=== PATIENT | male | born 1940 | race Caucasian/White ===

== ENCOUNTER 2017-05-05 08:00 | Outpatient (CLI) | payer MEDICARE, OTHER ==
[2017-05-05 19:10] LABS: CALCIUM 9.3 mg/dL (8.5-10.3); CREATININE 1.2 mg/dL (0.6-1.2)
== END 2017-05-05 08:01 | disposition home or self-care (01) ==
LOC: LAB.N 08:00
PROVIDERS: ATTEND Nurse Practitioner Family
DX: I48.91 Unspecified atrial fibrillation (principal)
CPT/HCPCS: 36415; 80048

== ENCOUNTER 2017-06-02 11:14 | Outpatient (CLI) | payer MEDICARE, OTHER ==
--- NOTE | 2017-06-02 13:41 | XRAY Report ---
TWO VIEW CHEST: 06/02/2017 CLINICAL INDICATION: Hemoptysis. COMPARISON: 05/26/2009. FINDINGS: Frontal and lateral views of the chest demonstrate a normal cardiac silhouette. The lungs are clear. No effusion or pneumothorax is present. IMPRESSION: NORMAL CHEST. JOB #: [id number] EXT JOB #:[id number]
== END 2017-06-02 11:15 | disposition home or self-care (01) ==
LOC: DI.N 11:14
PROVIDERS: ATTEND Internal Medicine
DX: R04.2 Hemoptysis (principal)
CPT/HCPCS: 71020

== ENCOUNTER 2017-09-10 14:40 | Outpatient (CLI) | payer MEDICARE, OTHER ==
--- NOTE | 2017-09-10 18:53 | XRAY Report ---
THREE VIEW LEFT SHOULDER: 09/10/2017 CLINICAL INDICATION: Pain. AP, oblique, scapular Y-views of the left shoulder demonstrate degenerative changes of the left gleno humeral and acromioclavicular joints. There is no evidence of acute fracture or dislocation. No rad iopaque foreign body is seen in the soft tissues. IMPRESSION: OSTEOARTHRITIS. NO EVIDENCE OF ACUTE FRACTURE. JOB #: [id number] EXT JOB #:[id number]
== END 2017-09-10 14:41 | disposition home or self-care (01) ==
LOC: DI 14:40
PROVIDERS: ATTEND Physician Assistant
DX: M19.012 Primary osteoarthritis, left shoulder (principal)

== ENCOUNTER 2017-12-23 12:01 | Outpatient (CLI) | payer MEDICARE, OTHER | END 2017-12-23 12:02 | disposition home or self-care (01) | LOC: LAB 12:01 | PROVIDERS: ATTEND Family Medicine | DX: M79.661 Pain in right lower leg (principal) | CPT/HCPCS: 36415; 85379 ==

== ENCOUNTER 2018-01-17 16:40 | Outpatient (CLI) | payer MEDICARE, OTHER ==
--- NOTE | 2018-01-19 10:12 | Ultrasound Report ---
BILATERAL SPEEDY'S: 01/17/2018 CLINICAL INDICATION: Right-sided pain. TECHNIQUE: Real-time sonographic vascular imaging was performed by the external grinder through the extremities utilizing both color-flow and Doppler flow analysis. Multiple business development representative static images were saved for review. RIGHT SIDE SITE PSV [employer] PASTEUR[employer]ER 74 triphasic PER -- DPA 54 triphasic LEFT SIDE SITE PSV [employer] PASTEUR[employer]ER 64 biphasic PER -- DPA 51 biphasic SYSTOLIC PRESSURES RIGHT LEFT BRACHIAL ARTERY 157/99 179/100 POSTERIOR TIBIAL ARTERY 203/90 187/90 ANTERIOR TIBIAL ARTERY -- -- PERONEAL ARTERY -- -- ANKLE/ARM INDEX 1.29 1.04 FINDINGS: ABIs are normal, with the right measuring 1.29 and the left measuring 1.04. IMPRESSION: NORMAL ABIs. TD: 01/18/2018 10:08 MTDD
== END 2018-01-17 16:41 | disposition home or self-care (01) ==
LOC: DI 16:40
PROVIDERS: ATTEND Family Medicine
DX: M79.604 Pain in right leg (principal); M79.661 Pain in right lower leg
CPT/HCPCS: 93922

== ENCOUNTER 2018-02-22 08:00 | Outpatient (CLI) | payer MEDICARE, OTHER ==
[2018-02-22 13:08] LABS: ALBUMIN 4.7 g/dL (3.2-5.5); ALBUMIN/GLOBULIN RATIO 1.6 (1.0-2.2); BILIRUBIN,TOTAL 1.1 mg/dL (0.2-1.0); CALCIUM 9.4 mg/dL (8.5-10.3); TOTAL PROTEIN 7.7 g/dL (6.7-8.2)
== END 2018-02-22 08:01 | disposition home or self-care (01) ==
LOC: LAB.N 08:00
PROVIDERS: ATTEND Internal Medicine Cardiovascular Disease
DX: I48.91 Unspecified atrial fibrillation (principal)
CPT/HCPCS: 36415; 80053

== ENCOUNTER 2018-06-14 13:01 | Outpatient (CLI) | payer MEDICARE, OTHER ==
--- NOTE | 2018-06-14 15:52 | XRAY Report ---
Reason: HIP JOINT PAIN,LEFT Procedure Date: 06/14/2018 Accession Number: [id number] / [id number] Procedure: XR - Hip w/Pelvis 2-3V LT CPT Code: FULL RESULT: EXAM: LEFT HIP AND PELVIS RADIOGRAPHY EXAM DATE: 06/14/2018 01:41 PM. HISTORY: HIP JOINT PAIN,LEFT. COMPARISONS: 12/23/2017. TECHNIQUE: 1 view of the pelvis and 1 view of the left hip. FINDINGS: Bones: No fracture or bone lesion. Joints: The bilateral hip, pubis symphysis, and sacroiliac joints are anatomically aligned. Degenerative spurring of the superior acetabulum bilaterally. Minimal if any narrowing. Soft Tissues: No soft tissue swelling. Other: Stable compared with 12/23/2017 IMPRESSION: Minimal degenerative change of the hips without superimposed acute findings. RADIA
== END 2018-06-14 13:02 | disposition home or self-care (01) ==
LOC: DI 13:01
PROVIDERS: ATTEND Family Medicine
DX: M16.0 Bilateral primary osteoarthritis of hip (principal)

== ENCOUNTER 2018-07-25 09:45 | Outpatient (CLI) | payer MEDICARE, OTHER ==
--- NOTE | 2018-07-25 11:06 | MRI Report ---
Reason: LUMBAR RADICULOPATHY Procedure Date: 07/25/2018 Accession Number: [id number] / [id number] Procedure: MRI - Lumbar Spine W/O CPT Code: FULL RESULT: EXAM: MRI LUMBAR SPINE WITHOUT CONTRAST EXAM DATE: 07/25/2018 10:41 AM. CLINICAL HISTORY: LUMBAR RADICULOPATHY. COMPARISON: Lumbar radiograph 12/23/2017. TECHNIQUE: Multiplanar, multisequence T1-weighted and fluid-sensitive sequences of the lumbar spine from T12 to S1 without contrast. Other: None. FINDINGS: Spinal Canal: The conus terminates at T12-L1. The conus medullaris and cauda equina are unremarkable. Alignment: There is 5 degrees of dextroconvex scoliotic curvature. There is straightening of the normal lumbar lordosis. There is 2 mm of grade 1 retrolisthesis of L4 on L5 and L5 on S1. Bone Marrow: Five [id number] lumbar vertebral bodies are assumed. No gross fractures or bone lesions. No bone marrow replacement. Disk Levels/Facets: Mild end plate degenerative change with mild loss of disk height and disk desiccation seen throughout the lumbar spine. T12-L1: Unremarkable. L1-L2: Bilateral arthritic facet disease and prominent epidural fat. No spinal canal stenosis. No neuroforaminal narrowing. L2-L3: Small posterior disk bulge, bilateral arthritic facet disease, ligamentum flavum thickening, and prominent epidural fat. Mild spinal canal stenosis and effacement of the right lateral recess. No significant neural foraminal narrowing. L3-L4: Small posterior disk bulge, bilateral arthritic facet disease, and prominent epidural fat. Moderate spinal canal stenosis and effacement of the lateral recesses with contact of the traversing right L4 and contact of potential mass-effect on the traversing left L4 nerve roots. Mild bilateral neuroforaminal narrowing. L4-L5: Small posterior disk bulge, bilateral arthritic facet disease, ligament of flavum thickening, and prominent epidural fat. Mild spinal canal stenosis and effacement of the lateral recesses with contact and potential mass-effect on the traversing right L5 nerve root. Mild right and minimal left neural foraminal narrowing. L5-S1: Small posterior disk bulge and bilateral arthritic facet disease. Effacement of the lateral recesses with contact of the traversing right S1 nerve root. Mild right neuroforaminal narrowing. Musculature: Normal. No edema or fatty atrophy. Other: Several T2 hyperintense lesions are seen within the left kidney the largest measuring 13.7 x 10.4 x 13.6 cm (cc by TRV by AP). There appears to be 5 mm T2 hyperintense lesion seen within the spleen (series 901, 32) that may represent splenic cyst. IMPRESSION: 1. There is 5 degrees of dextroconvex scoliotic curvature. 2. There is straightening of the normal lumbar lordosis. There is 2 mm of grade 1 retrolisthesis of L4 on L5 and L5 on S1. 3. Multilevel degenerative changes. L2-L3: Mild spinal canal stenosis and effacement of the right lateral recess. No significant neural foraminal narrowing. L3-L4: Moderate spinal canal stenosis and effacement of the lateral recesses with contact of the traversing right L4 and contact of potential mass-effect on the traversing left L4 nerve roots. Mild bilateral neuroforaminal narrowing. L4-L5: Mild spinal canal stenosis and effacement of the lateral recesses with contact and potential mass-effect on the traversing right L5 nerve root. Mild right and minimal left neural foraminal narrowing. L5-S1: Effacement of the lateral recesses with contact of the traversing right S1 nerve root. Mild right neuroforaminal narrowing. 4. T2 hyperintense lesions are seen within the left kidney largest measuring 13.7 x 10.4 x 13.6 cm (cc by TR by AP) likely representing renal cyst. Comment: The following findings are so common in adults without low back pain that while we report their presence, they must be interpreted with caution and in the context of the clinical situation. (Reference Jose Danielk et al, Spine 2001) Prevalence of findings in patients without low back pain: Disk degeneration (any evidence): 92% Disk desiccation/T2 signal loss: 83% Disk height loss: 56% Disk bulge: 64% Disk protrusion: 32% Annular tear/high intensity zone: 38% RADIA
== END 2018-07-25 09:46 | disposition home or self-care (01) ==
LOC: DI 09:45
PROVIDERS: ATTEND Family Medicine
DX: M47.26 Other spondylosis with radiculopathy, lumbar region (principal); M51.36 Other intervertebral disc degeneration, lumbar region; M41.86 Other forms of scoliosis, lumbar region; M48.061 Spinal stenosis, lumbar region without neurogenic claudication; M43.16 Spondylolisthesis, lumbar region; M43.17 Spondylolisthesis, lumbosacral region; M47.27 Other spondylosis with radiculopathy, lumbosacral region; N28.9 Disorder of kidney and ureter, unspecified
CPT/HCPCS: 72148

== ENCOUNTER 2019-01-06 08:00 | Outpatient (CLI) | payer MEDICARE, OTHER ==
[2019-01-06 14:29] LABS: CALCIUM 9.7 mg/dL (8.5-10.3); CREATININE 1.1 mg/dL (0.6-1.2)
== END 2019-01-06 08:01 | disposition home or self-care (01) ==
LOC: LAB.N 08:00
PROVIDERS: ATTEND Nurse Practitioner Family
DX: Z51.81 Encounter for therapeutic drug level monitoring (principal); Z79.899 Other long term (current) drug therapy
CPT/HCPCS: 36415; 80048

== ENCOUNTER 2019-05-18 08:50 | Outpatient (CLI) | payer MEDICARE, OTHER ==
[2019-05-18 12:08] LABS: BASOPHILS # (AUTO) 0.1 10^3/uL (0.0-0.1); BASOPHILS % (AUTO) 1.9 %; EOSINOPHILS # (AUTO) 0.1 10^3/uL (0.0-0.7); EOSINOPHILS % (AUTO) 3.8 %; HGB - HEMOGLOBIN 16.3 g/dL (14.0-18.0); LYMPHOCYTES # (AUTO) 0.9 10^3/uL (1.5-3.5); LYMPHOCYTES % (AUTO) 23.9 %; MEAN CORPUSCULAR HEMOGLOBIN 31.5 pg (27.0-31.0); MEAN CORPUSCULAR HGB CONC 33.8 g/dL (32.0-36.0); MEAN CORPUSCULAR VOLUME 93.2 fL (80.0-94.0); MEAN PLATELET VOLUME 11.3 fL (7.4-11.4); MONOCYTES # (AUTO) 0.3 10^3/uL (0.0-1.0); MONOCYTES % (AUTO) 9.1 %; NEUTROPHILS # (AUTO) 2.3 10^3/uL (1.5-6.6); PLT - PLATELET COUNT 154 10^3/uL (130-450); RED BLOOD COUNT 5.17 10^6/uL (4.70-6.10); RED CELL DISTRIBUTION WIDTH 12.6 % (12.0-15.0); WHITE BLOOD COUNT 3.7 x10^3/uL (4.8-10.8)
[2019-05-18 12:37] LABS: ALBUMIN 4.5 g/dL (3.2-5.5); ALBUMIN/GLOBULIN RATIO 1.4 (1.0-2.2); ALKALINE PHOSPHATASE 53 IU/L (42-121); ALT ALANINE AMINOTRANSFERASE 20 IU/L (10-60); AST ASPARTATE AMINOTRANSFERASE 21 IU/L (10-42); BILIRUBIN,TOTAL 1.1 mg/dL (0.2-1.0); BUN - BLOOD UREA NITROGEN 20 mg/dL (6-20); CALCIUM 9.4 mg/dL (8.5-10.3); CARBON DIOXIDE - CO2 26 mmol/L (21-32); CHLORIDE 107 mmol/L (101-111); CHOL/HDL RATIO 5.4 (<5.0); CHOLESTEROL 179 mg/dL; CREATININE 1.1 mg/dL (0.6-1.2); GFR - MDRD 65 (>89); GLUCOSE 94 mg/dL (70-100); HDL CHOLESTEROL 33 mg/dL; LDL CHOLESTEROL,CALCULATED 124 mg/dL; LDL/HDL RATIO 3.8 (<3.6); SODIUM 143 mmol/L (135-145); TOTAL PROTEIN 7.7 g/dL (6.7-8.2); VLDL CHOLESTEROL 22 mg/dL
[2019-05-18 12:43] LABS: PSA SCREEN (Z12.5) 1.12 ng/mL (0.000-2.000)
== END 2019-05-18 09:00 | disposition home or self-care (01) ==
LOC: LAB.N 08:50
PROVIDERS: ATTEND Family Medicine
DX: I10 Essential (primary) hypertension (principal); Z12.5 Encounter for screening for malignant neoplasm of prostate; Z23 Encounter for immunization
CPT/HCPCS: 36415; 80061; 81599; 86762; 86765; G0103; 80053; 83721; 84153; 84443; 85025

== ENCOUNTER 2019-11-08 15:18 | Outpatient (CLI) | payer MEDICARE, OTHER ==
--- NOTE | 2019-11-09 12:09 | XRAY Report ---
Reason: KNEE JOINT PAIN Procedure Date: 11/08/2019 Accession Number: [id number] / [id number] Procedure: XRN - Knee 3 View RT CPT Code: Final Report FULL RESULT: EXAM: RIGHT KNEE RADIOGRAPHY EXAM DATE: 11/08/2019 03:37 PM. CLINICAL HISTORY: Chronic right knee pain x20 years COMPARISON: KNEE 3 VIEW RT 07/29/2016 1:12 PM. TECHNIQUE: 3 views. FINDINGS: Bones: Small suprapatellar spurs. No fracture or bone lesion. Joints: Normal alignment. Mild tricompartmental osteophytosis. Possible mild medial compartment joint space loss. A moderate sized suprapatellar effusion is present. Soft Tissues: Chondrocalcinosis in the lateral compartment. IMPRESSION: 1. Tricompartmental osteoarthritis, kellgren Chas Grade 2. 2. Moderate knee effusion. 3. No acute bony abnormality. Kellgren and Chas classification of osteoarthritis: Grade 0: no radiographic features of osteoarthritis are present Grade 1: doubtful joint space narrowing (JSN) and possible osteophytic lipping Grade 2: definite osteophytes and possible JSN on anteroposterior weight-bearing radiograph Grade 3: multiple osteophytes, definite JSN, sclerosis, possible bony deformity Grade 4: large osteophytes, marked JSN, severe sclerosis and definite bony deformity RADIA
== END 2019-11-08 15:19 | disposition home or self-care (01) ==
LOC: DI.N 15:18
PROVIDERS: ATTEND Family Medicine
DX: M17.11 Unilateral primary osteoarthritis, right knee (principal); M25.461 Effusion, right knee

== ENCOUNTER 2021-02-20 09:48 | Outpatient (CLI) | payer MEDICARE, OTHER ==
[2021-02-20 11:53] LABS: BASOPHILS # (AUTO) 0.1 10^3/uL (0.0-0.1); BASOPHILS % (AUTO) 1.7 %; EOSINOPHILS # (AUTO) 0.2 10^3/uL (0.0-0.7); EOSINOPHILS % (AUTO) 3.9 %; HCT - HEMATOCRIT 49.3 % (42.0-52.0); HGB - HEMOGLOBIN 16.4 g/dL (14.0-18.0); LYMPHOCYTES # (AUTO) 1.1 10^3/uL (1.5-3.5); LYMPHOCYTES % (AUTO) 22.7 %; MEAN CORPUSCULAR HEMOGLOBIN 31.6 pg (27.0-31.0); MEAN CORPUSCULAR HGB CONC 33.3 g/dL (32.0-36.0); MEAN PLATELET VOLUME 11.2 fL (7.4-11.4); MONOCYTES # (AUTO) 0.4 10^3/uL (0.0-1.0); MONOCYTES % (AUTO) 9.4 %; NEUTROPHILS # (AUTO) 2.9 10^3/uL (1.5-6.6); NEUTROPHILS % (AUTO) 62.3 %; PLT - PLATELET COUNT 168 10^3/uL (130-450); RED BLOOD COUNT 5.19 10^6/uL (4.70-6.10); RED CELL DISTRIBUTION WIDTH 12.7 % (12.0-15.0); WHITE BLOOD COUNT 4.7 x10^3/uL (4.8-10.8)
[2021-02-20 12:34] LABS: ALBUMIN 4.7 g/dL (3.2-5.5); ALBUMIN/GLOBULIN RATIO 1.6 (1.0-2.2); CALCIUM 9.4 mg/dL (8.5-10.3); CREATININE 1.1 mg/dL (0.6-1.2); POTASSIUM 4.5 mmol/L (3.5-5.0); TOTAL PROTEIN 7.7 g/dL (6.7-8.2)
== END 2021-02-20 09:49 | disposition home or self-care (01) ==
LOC: LAB.N 09:48
PROVIDERS: ATTEND Internal Medicine
DX: I48.91 Unspecified atrial fibrillation (principal)
CPT/HCPCS: 36415; 80053; 84443; 85025

== ENCOUNTER 2021-06-22 02:54 | Outpatient (CLI) | payer MEDICARE, OTHER | END 2021-06-22 02:55 | disposition short-term general hospital (02) | LOC: EMS 02:54 | DX: R04.0 Epistaxis (principal); Z79.01 Long term (current) use of anticoagulants | CPT/HCPCS: A0425; A0429 ==

== ENCOUNTER 2022-08-28 08:27 | Outpatient (CLI) | payer MEDICARE, OTHER ==
[2022-08-28 12:44] LABS: ALBUMIN 4.4 g/dL (3.2-5.5); ALBUMIN/GLOBULIN RATIO 1.5 (1.0-2.2); ALKALINE PHOSPHATASE 55 IU/L (42-121); ALT ALANINE AMINOTRANSFERASE 19 IU/L (10-60); AST ASPARTATE AMINOTRANSFERASE 21 IU/L (10-42); BILIRUBIN,TOTAL 0.9 mg/dL (0.2-1.0); BUN - BLOOD UREA NITROGEN 20 mg/dL (6-20); CALCIUM 9.6 mg/dL (8.5-10.3); CARBON DIOXIDE - CO2 29 mmol/L (21-32); CHLORIDE 105 mmol/L (101-111); CHOL/HDL RATIO 2.2 (<5.0); CHOLESTEROL 86 mg/dL; CREATININE 1.1 mg/dL (0.6-1.2); GFR - MDRD 64 (>89); GLUCOSE 100 mg/dL (70-100); HDL CHOLESTEROL 39 mg/dL; LDL CHOLESTEROL,CALCULATED 38 mg/dL; POTASSIUM 4.7 mmol/L (3.5-5.0); SODIUM 142 mmol/L (135-145); TOTAL PROTEIN 7.3 g/dL (6.7-8.2); TRIGLYCERIDES 43 mg/dL; VLDL CHOLESTEROL 9 mg/dL
== END 2022-08-28 08:28 | disposition home or self-care (01) ==
LOC: LAB.N 08:27
PROVIDERS: ATTEND Nurse Practitioner
DX: I10 Essential (primary) hypertension (principal); I48.91 Unspecified atrial fibrillation; Z95.1 Presence of aortocoronary bypass graft
CPT/HCPCS: 36415; 80053; 80061; 83721

== ENCOUNTER 2023-07-14 10:39 | Outpatient (CLI) | payer MEDICARE, OTHER ==
[2023-07-14 18:32] LABS: CALCIUM 9.5 mg/dL (8.5-10.3); CREATININE 1.1 mg/dL (0.6-1.3); MAGNESIUM 1.7 mg/dL (1.7-2.3); POTASSIUM 4.5 mmol/L (3.5-4.5)
== END 2023-07-14 10:40 | disposition home or self-care (01) ==
LOC: LAB.N 10:39
PROVIDERS: ATTEND Nurse Practitioner Family
DX: I48.0 Paroxysmal atrial fibrillation (principal); Z51.81 Encounter for therapeutic drug level monitoring; Z79.899 Other long term (current) drug therapy
CPT/HCPCS: 36415; 80048; 83735

== ENCOUNTER 2023-10-13 13:47 | Outpatient (CLI) | payer MEDICARE, OTHER ==
[2023-10-13 18:05] LABS: CALCIUM 9.4 mg/dL (8.5-10.3); CREATININE 1.1 mg/dL (0.6-1.3); MAGNESIUM 1.7 mg/dL (1.7-2.3); POTASSIUM 4.1 mmol/L (3.5-4.5)
== END 2023-10-13 13:48 | disposition home or self-care (01) ==
LOC: LAB.N 13:47
PROVIDERS: ATTEND Nurse Practitioner Family
DX: I48.0 Paroxysmal atrial fibrillation (principal); Z51.81 Encounter for therapeutic drug level monitoring; Z79.899 Other long term (current) drug therapy
CPT/HCPCS: 36415; 80048; 83735

== ENCOUNTER 2024-01-13 09:01 | Outpatient (CLI) | payer MEDICARE, OTHER ==
[2024-01-13 12:17] LABS: CALCIUM 9.8 mg/dL (8.5-10.3); POTASSIUM 4.3 mmol/L (3.5-4.5)
== END 2024-01-13 09:02 | disposition home or self-care (01) ==
LOC: LAB.N 09:01
PROVIDERS: ATTEND Nurse Practitioner
DX: Z51.81 Encounter for therapeutic drug level monitoring (principal); Z79.899 Other long term (current) drug therapy; I48.0 Paroxysmal atrial fibrillation
CPT/HCPCS: 36415; 80048

== ENCOUNTER 2024-04-26 11:27 | Outpatient (CLI) | payer MEDICARE, OTHER ==
[2024-04-26 18:14] LABS: CALCIUM 9.5 mg/dL (8.5-10.3); CREATININE 1.1 mg/dL (0.6-1.3); MAGNESIUM 2.1 mg/dL (1.7-2.3); POTASSIUM 4.9 mmol/L (3.5-4.5)
== END 2024-04-26 11:28 | disposition home or self-care (01) ==
LOC: LAB.N 11:27
PROVIDERS: ATTEND Internal Medicine Cardiovascular Disease
DX: I48.0 Paroxysmal atrial fibrillation (principal); Z51.81 Encounter for therapeutic drug level monitoring; Z79.899 Other long term (current) drug therapy; I25.10 Atherosclerotic heart disease of native coronary artery without angina pectoris; I42.8 Other cardiomyopathies
CPT/HCPCS: 36415; 80048; 83735

== ENCOUNTER 2024-06-05 09:32 | Outpatient (CLI) | payer MEDICARE, OTHER | END 2024-06-05 09:33 | disposition home or self-care (01) | LOC: LAB 09:32 | PROVIDERS: ATTEND Urology | DX: N40.1 Benign prostatic hyperplasia with lower urinary tract symptoms (principal); N13.8 Other obstructive and reflux uropathy | CPT/HCPCS: 36415; 84153 ==